=== PATIENT | female | born 1940 | race Caucasian/White ===

== ENCOUNTER 2017-06-08 09:35 | Outpatient (CLI) | payer MEDICARE, OTHER ==
--- NOTE | 2017-06-08 11:19 | MMO ---
BILATERAL DIGITAL DIAGNOSTIC MAMMOGRAMS: Date: 06/08/17 HISTORY: 77-year-old female presents for bilateral diagnostic mammogram with a history of having pain in her right breast, which has bone away and has not been present for the last several days. No evidence fo r a palpable finding. COMPARISON: 10/15/15, 08/14/14, 06/29/13, 06/10/12. FINDINGS: This patient's mammogram was interpreted with the assistance of computer-aided detection. The breasts are heterogeneously dense, which can obscure small masses. Stable typically benign calci fications. No direct or indirect evidence of malignancy. IMPRESSION: BIRADS 2: Benign Finding(s) Continue routine screening. POS: [facility]
== END 2017-06-08 09:36 | disposition home or self-care (01) ==
LOC: MAMMO 09:35
PROVIDERS: ATTEND Family Medicine
DX: N64.4 Mastodynia (principal)
CPT/HCPCS: 77066; G0204

== ENCOUNTER 2017-06-30 07:32 | Outpatient (CLI) | payer MEDICARE, OTHER ==
[2017-06-30 08:27] LABS: Anion Gap 9 mmol/L (10-20); BUN (Urea Nitrogen) 10 mg/dL (9.8-20.1); BUN/Creatinine Ratio 14.29; Calc. Creatinine Clearance 0 mL/min (70-130); Calcium 8.9 mg/dL (7.8-10.44); Carbon Dioxide 29 mmol/L (23-31); Chloride 105 mmol/L (98-107); Estimated GFR-MDRD 81; Phosphorus 3.5 mg/dL (2.3-4.7)
--- NOTE | 2017-06-30 08:33 | ULT ---
RENAL ULTRASOUND: Indication: History of UTI. Comparison: 04-16-16 FINDINGS: Right kidney measures 9.7 x 3.9 x 4.8 cm. Left kidney measures 10.2 x 4.4 x 4.3 cm. Pre void bladder volume is 209.27 cc. Right sided peripelvic cyst appears similar and measures 1.4 x 1.5 x 1.3 cm. IMPRESSION: 1. No hydronephrosis or solitary lesion. 2. Stable right peripelvic cyst. POS: [facility]
== END 2017-06-30 07:33 | disposition home or self-care (01) ==
LOC: ULT 07:32
PROVIDERS: ATTEND Urology
DX: N39.0 Urinary tract infection, site not specified (principal); N28.1 Cyst of kidney, acquired; R35.0 Frequency of micturition
CPT/HCPCS: 36415; 76770; 80069

== ENCOUNTER 2017-12-09 14:15 | Emergency (ER) | payer MEDICARE, OTHER ==
--- NOTE | 2017-12-09 15:15 | RAD ---
AP PELVIS: Comparison: None. History: Tripped and fell. Left hip and elbow pain. FINDINGS: There is a fracture of the left superior pubic ramus and a fracture of the left inferior pubic ramus. No fracture of the femur is seen. No degenerative change is seen in either hip. IMPRESSION: Left superior and inferior pubic rami fractures. POS: [facility]
--- NOTE | 2017-12-09 15:17 | RAD ---
TWO VIEWS LEFT HIP: Comparison: None. History: Tripped and fell with left sided hip/pelvic pain. FINDINGS: Two views of the left hip shows fracture of the left superior and inferior pubic rami. No fracture of the hip is seen. No degenerative changes are seen in the left hip. IMPRESSION: Left superior and inferior pubic rami fractures. POS: [facility]
--- NOTE | 2017-12-09 15:21 | RAD ---
FOUR VIEWS LEFT ELBOW: Comparison: None. History: Tripped and fell with left elbow pain. FINDINGS: Four views of the left elbow shows no evidence of acute fracture or dislocation. No degenerative rosenbaum ges are seen. No elbow effusion is seen. IMPRESSION: Unremarkable exam. POS: [facility]
--- NOTE | 2017-12-09 15:23 | CT ---
CT BRAIN WITHOUT CONTRAST: Comparison: None. History: Fall with pelvic fracture. Headache. Technique: Multiple contiguous axial images were obtained in a CT of the brain without contrast. FINDINGS: The brain is normal in morphology and attenuation without focal lesions or confluent areas of infarc tion. There is no evidence of hydrocephalus, intracranial hemorrhage, or extraaxial fluid collection. The calvarium and overlying soft tissues are unremarkable. The visualized paranasal sinuses and masto id air cells are well aerated. IMPRESSION: No evidence of acute intracranial abnormality. POS: [facility]
[2017-12-09] MEDS ORDERED: Morphine 5 MG/ML SYRINGE ONE (15:46)
== END 2017-12-09 16:14 | disposition home or self-care (01) ==
LOC: SCSER 14:15
DX: S32.592A Other specified fracture of left pubis, initial encounter for closed fracture (principal); S60.222A Contusion of left hand, initial encounter; S50.02XA Contusion of left elbow, initial encounter; K21.9 Gastro-esophageal reflux disease without esophagitis; E78.5 Hyperlipidemia, unspecified; E03.9 Hypothyroidism, unspecified; Z79.82 Long term (current) use of aspirin; Z79.899 Other long term (current) drug therapy; W19.XXXA Unspecified fall, initial encounter
CPT/HCPCS: 70450; 72170; 96372; J2270

== ENCOUNTER 2018-06-09 09:55 | Outpatient (CLI) | payer MEDICARE, OTHER ==
--- NOTE | 2018-06-09 16:33 | MMO ---
BILATERAL SCREENING MAMMOGRAM: Date: 06/09/18 INDICATION: Annual exam. COMPARISON: Prior exam dated 10/16/15. FINDINGS: Interpretation of this exam was assisted with computer-aided detection. The breast parenchyma is heterogeneously dense. There are benign-appearing and vascular calcifications within the right and left breast. No suspicious mass, cluster of microcalcifications, or area of architectural distortion is evident. IMPRESSION: BIRADS 2: Benign Finding(s) Recommend routine annual mammographic screening. POS: [facility]
== END 2018-06-09 09:56 | disposition home or self-care (01) ==
LOC: SCSMAMMO 09:55
PROVIDERS: ATTEND Family Medicine
DX: Z12.31 Encounter for screening mammogram for malignant neoplasm of breast (principal)
CPT/HCPCS: 77067